=== PATIENT | male | born 2000 | race Caucasian/White ===

== ENCOUNTER 2021-10-17 15:54 | Emergency (ER) | payer SELFPAY ==
[~2021-10-17] VITALS: Ht 172.7 cm; Wt 68.0 kg
== END 2021-10-17 17:42 | disposition home or self-care (01) ==
LOC: ED 15:54
DX: R05.9 Cough, unspecified (principal); R51.9 Headache, unspecified; Z20.822 Contact with and (suspected) exposure to COVID-19
CPT/HCPCS: 99284; C9803; U0003

== ENCOUNTER 2022-10-21 15:38 | Emergency (ER) | payer OTHER ==
[~2022-10-21] VITALS: Ht 172.7 cm; Wt 59.0 kg
[2022-10-21] MEDS ORDERED: CEPHALEXIN500 M1 PO (17:26)
== END 2022-10-21 19:04 | disposition home or self-care (01) ==
LOC: ED 15:38
PROC: 0HQFXZZ Repair Right Hand Skin, External Approach (ICD-10-PCS; principal; 2022-10-21)
DX: S66.126A Laceration of flexor muscle, fascia and tendon of right little finger at wrist and hand level, initial encounter (principal); S66.122A Laceration of flexor muscle, fascia and tendon of right middle finger at wrist and hand level, initial encounter; S66.124A Laceration of flexor muscle, fascia and tendon of right ring finger at wrist and hand level, initial encounter; S61.210A Laceration without foreign body of right index finger without damage to nail, initial encounter; Z23 Encounter for immunization; W26.0XXA Contact with knife, initial encounter
CPT/HCPCS: 12002; 73130; 90471; 90715; 99283-25; A9270

== ENCOUNTER 2023-04-25 00:06 | Emergency (ER) | payer OTHER ==
[~2023-04-25] VITALS: Ht 172.7 cm; Wt 59.0 kg
--- OUTSIDE RECORDS SUMMARY | ~2023-04-25 | XMS | Continuity of Care Document ---
Demographics + + + | Address | [address] | | | [place] [address] | + + + | Preferred Language | Unknown | + + + | Marital Status | Never | + + + | Baptism Affiliation | Unknown | + + + | Race | White | + + + | Ethnic Group | Not or | + + + Author + + + | Author | [facility] | + + + | Organization | [facility] | + + + | Address | [address] [facility] | | | [place] [address] | + + + | Phone | | + + + Care Team Providers + + + + | Care Business Services Assistant Name | Role | Phone | + + + + Unavailable | Unavailable | + + + + Unavailable | Unavailable | + + + + Allergies No information. Encounters No information. Functional Status No information. Immunizations + + + + | date | description | facility | + + + + | 2022-10-21 00:00 | Tdap | [facility] | + + + + Medications + + + + | date | description | facility | + + + + | 2022-10-21 00:00 | CEPHALEXIN | [facility] | + + + + Problems + + + + | date | description | facility | + + + + | 2021-10-17 00:00 | Person under investigation | [facility] | | | for severe acute | | | | respiratorysyndrome | | | | coronavirus 2 (SARS-CoV-2) | | | | infection | | + + + + | 2022-10-21 00:00 | Laceration of index finger | [facility] | | | | | + + + + | 2022-10-21 00:00 | Laceration of little | [facility] | | | finger with tendon | | | | involvement | | + + + + | 2022-10-21 00:00 | Laceration of middle | [facility] | | | finger with tendon | | | | involvement | | + + + + | 2022-10-21 00:00 | Laceration of ring finger | [facility] | | | with tendon involvement | | + + + + Procedures No information. Results/Labs No information. Social History + + + + | date | description | facility | + + + + | 2022-10-21 00:00 | Unknown if ever smoked | [facility] | + + + + Vital Signs + + + +---------+ | date | measurement | value | units | + + + +---------+ | 2022-10-21 00:00 | BMI | 19.8 | kg/m2 | + + + +---------+ | 2022-10-21 00:00 | BP_diastolic | 90 | mmHg | + + + +---------+ | 2022-10-21 00:00 | BP_systolic | 123 | mmHg | + + + +---------+ | 2022-10-21 00:00 | heart_rate | 66 | /min | + + + +---------+ | 2022-10-21 00:00 | height_metric | 172.72 | cm | + + + +---------+ | 2022-10-21 00:00 | height_standard | 68 | in | + + + +---------+ | 2022-10-21 00:00 | o2_saturation | 98 | % | + + + +---------+ | 2022-10-21 00:00 | respiration_rate | 15 | /min | + + + +---------+ | 2022-10-21 00:00 | temperature_metric | 36.89 | C | | | | | | + + + +---------+ | 2022-10-21 00:00 | | 98.4 | F | | | temperature_standar | | | | | d | | | + + + +---------+ | 2022-10-21 00:00 | weight_metric | 58.97 | kg | + + + +---------+ | 2022-10-21 00:00 | weight_standard | 130 | lb | + + + +---------+ | 2022-10-21 00:00 | weight_standard | 130.01 | lb | + + + +---------+"
--- OUTSIDE RECORDS SUMMARY | ~2023-04-25 | XMS | Continuity of Care Document ---
Demographics + + + | Address | [address] | | | [place] [address] | + + + | Preferred Language | Unknown | + + + | Marital Status | Never | + + + | Confucianist Affiliation | Unknown | + + + | Race | White | + + + | Ethnic Group | Not or | + + + Author + + + | Author | [facility] | + + + | Organization | [facility] | + + + | Address | [address] [facility] | | | [place] [address] | + + + | Phone | | + + + Care Team Providers + + + + | Care Tinner Helper Name | Role | Phone | + + + + Unavailable | Unavailable | + + + + Unavailable | Unavailable | + + + + Allergies No information. Encounters No information. Functional Status No information. Immunizations + + + + | date | description | facility | + + + + | 2022-10-21 00:00 | Tdap | [facility] | + + + + Medications + + + + | date | description | facility | + + + + | 2022-10-21 00:00 | CEPHALEXIN | [facility] | + + + + Problems + + + + | date | description | facility | + + + + | 2021-10-17 00:00 | Person under investigation | [facility] | | | for severe acute | | | | respiratorysyndrome | | | | coronavirus 2 (SARS-CoV-2) | | | | infection | | + + + + | 2022-10-21 00:00 | Laceration of index finger | [facility] | | | | | + + + + | 2022-10-21 00:00 | Laceration of little | [facility] | | | finger with tendon | | | | involvement | | + + + + | 2022-10-21 00:00 | Laceration of middle | [facility] | | | finger with tendon | | | | involvement | | + + + + | 2022-10-21 00:00 | Laceration of ring finger | [facility] | | | with tendon involvement | | + + + + Procedures No information. Results/Labs No information. Social History + + + + | date | description | facility | + + + + | 2022-10-21 00:00 | Unknown if ever smoked | [facility] | + + + + Vital Signs [...]
[~2023-04-25 00:06] MED LIST: CEPHALEXIN500 M1 PO
[2023-04-25] MEDS ORDERED: CYCLOBENZAPRINE10 MG PO (00:46)
[2023-04-25 01:06] VITALS: BP 118/74
--- NOTE | 2023-04-28 19:37 | EKG ---
[facility] [address] [place], [place] [address] Signed Normal sinus rhythm Normal ECG No previous ECGs available Confirmed by TONJA CAGE MD ([id number]) on 04/28/2023 7:37:23 PM Electronically Signed By: TONJA CAGE 04/28/231936 PATIENT NAME: MAURISIOTARA Electrocardiogram DATE OF : [birth year] PHYSICIAN: TONJA CAGE REPORT #: [id number] REPORT IS CONFIDENTIAL AND NOT TO BE RELEASED WITHOUT AUTHORIZATION
== END 2023-04-25 01:07 | disposition home or self-care (01) ==
LOC: ED 00:06
DX: R07.89 Other chest pain (principal); F17.290 Nicotine dependence, other tobacco product, uncomplicated
CPT/HCPCS: 36415; 71045; 80053; 83735; 84484; 85025; 93005; 93010; 99285 25